=== PATIENT | female | born 1955 | race Caucasian/White ===

== ENCOUNTER 2018-11-13 06:41 | Outpatient (CLI) | payer BC ==
[2018-11-13 07:33] LABS: Estimated GFR-MDRD - POC Greater than 90
--- NOTE | 2018-11-13 12:14 | MRI ---
BILATERAL BREAST MRI WITH IV CONTRAST AND 3D POST PROCESSING AND EVALUATION ON AN INDEPENDENT 3D WORK STATION: HISTORY: Malignant neoplasm of the right breast. IV CONTRAST: 20 cc MultiHance. FINDINGS: There is a 1.5 cm spiculated enhancing mass in the right anterior breast 10 o'clock position about 1 cm from the closest skin surface consistent with known malignancy. No other suspicious masses or foc i of abnormal contrast enhancement is seen. No axillary or internal mammary lymphadenopathy is ident ified. IMPRESSION: BIRADS 6: Known Biopsy Proven Malignancy. POS: OFF
== END 2018-11-13 06:42 | disposition home or self-care (01) ==
LOC: BICMRI 06:41
PROVIDERS: ATTEND Specialist
DX: C50.911 Malignant neoplasm of unspecified site of right female breast (principal)
CPT/HCPCS: 82565; A9577; C8908

== ENCOUNTER 2019-07-04 07:36 | Outpatient (CLI) | payer BC ==
--- NOTE | 2019-07-04 11:22 | MRI ---
MRI BILATERALBREASTS WITHOUT AND WITH CONTRAST: Date: 07/04/2019 COMPARISON: 11/13/2018. Ultrasound breast from [facility] dated 02/19/2019. TECHNIQUE: Multiplanar, multisequence MR images were obtained of the bilateral breasts without and with IV contr ast. This examination was evaluated on a [employer] workstation. 3D MIP reformats and contrast enhanceme nt curves were generated on the [employer] workstation. FINDINGS: There is a 7.8 cm well circumscribed area of high T1 and T2 signal in the central aspect of the right breast. This likely represents a hematoma within the lumpectomy sites. There are areas of susceptibi lity artifact along the lateral aspect of the lumpectomy site which may represent surgical clips. No suspicious enhancement is seen in the right breast. There is skin thickening of the right breast. Scattered fibroglandular breast tissue is seen in both breasts. No suspicious enhancement is seen in either breast. Postsurgical changes from right axillary lymph node dissection are seen. No enlarged axillary lymph n odes are seen. No internal mammary lymph nodes are identified. Visualized anterior liver and osseous structures are unremarkable. IMPRESSION: The patient's large right breast mass represents a hematoma at the biopsy site. No suspicious areas o f enhancement are seen to suggest residual or recurrent disease. BI-RADS Category 2 - Benign findings . POS: [facility]
== END 2019-07-04 07:37 | disposition home or self-care (01) ==
LOC: BICMRI 07:36
PROVIDERS: ATTEND Specialist
DX: N63.10 Unspecified lump in the right breast, unspecified quadrant (principal); Z85.3 Personal history of malignant neoplasm of breast
CPT/HCPCS: 82565; A9577; C8908